=== PATIENT | female | born 1940 | race Caucasian/White ===

== ENCOUNTER 2021-12-28 06:06 | Day surgery (SDC) | payer OTHER, MEDICARE ==
[2021-12-24 14:23] VITALS: BMI 33.9
[2021-12-28 06:57] VITALS: RESP 16
[2021-12-28] MEDS ORDERED: BUPIVACAINE HCL/PF 2.5 MG/ML - 30 ML VIAL IJ ONE (07:08)
[2021-12-28] MEDS ORDERED: LIDOCAINE HCL 1%, 10 MG/ML (20ML VIAL) ONE (07:08)
[2021-12-28] MEDS ORDERED: PROPOFOL 40 ML ONE (07:16)
[2021-12-28] MEDS ORDERED: LIDOCAINE HCL 2% 100 MG/5 ML DISP.SYRIN ONE (07:16)
[2021-12-28] MEDS ORDERED: MIDAZOLAM HCL 2 MG/2 ML SINGLE DOSE VIAL ONE (07:16)
[2021-12-28] MEDS ORDERED: ceFAZolin SODIUM 1 GM VIAL ONE (08:09)
[2021-12-28] MEDS ORDERED: KETOROLAC TROMETHAMINE 30 MG/1 ML VIAL ONE (08:11)
[2021-12-28] MEDS ORDERED: ONDANSETRON 4 MG/2 ML VIAL ONE (08:11)
[2021-12-28] MEDS ORDERED: DEXAMETHASONE SOD PHOSPHATE 4 MG/1 ML VIAL ONE (08:11)
[2021-12-28 08:43] VITALS: PULSE 66; TEMP 97.6
[2021-12-28 09:39] VITALS: BP 147/68
== END 2021-12-28 10:00 | disposition home or self-care (01) ==
LOC: FASU 06:06
PROVIDERS: ATTEND Orthopaedic Surgery
PROC: 01N50ZZ Release Median Nerve, Open Approach (ICD-10-PCS; principal; 2021-12-28 08:13)
DX: G56.01 Carpal tunnel syndrome, right upper limb (principal)